=== PATIENT | male | born 1950 | race Caucasian/White ===

== ENCOUNTER 2018-02-14 12:43 | Emergency (ER) | payer MEDICARE, OTHER ==
[~2018-02-14] VITALS: Ht 177.8 cm; Wt 104.5 kg
[~2018-02-14 12:43] MED LIST: ASPIRIN 81M81 MG/TA2 PO; BYSTOLIC5 MG PO; CARAFATE S1 GM/10 ML PO; CIPRO 500MG TA500 MG PO; FLAGYL500 MG PO; FLOMAX 0.40.4 MG/CAP PO; NORCO 325 MG-51 TAB PO; PREDNISONE20 MG PO; PRILOSEC 20MG20 MG PO
[2018-02-14 12:48] VITALS: TEMP 98.3
[2018-02-14] MEDS ORDERED: PREDNISONE20 MG PO (14:14)
[2018-02-14 14:59] VITALS: BP 146/90; PULSE 66
== END 2018-02-14 15:08 | disposition home or self-care (01) ==
LOC: COL.ER 12:43
DX: T78.1XXA Other adverse food reactions, not elsewhere classified, initial encounter (principal); I10 Essential (primary) hypertension; Z79.82 Long term (current) use of aspirin
CPT/HCPCS: J1100; J1200; J7030

== ENCOUNTER 2019-02-14 08:56 | Emergency (ER) | payer MEDICARE, OTHER ==
[~2019-02-14] VITALS: Ht 177.8 cm; Wt 104.5 kg
[2019-02-14 09:01] VITALS: TEMP 97.4
[2019-02-14] MEDS ORDERED: ANDRODERM2.5 MG/24 TD (09:11)
[2019-02-14 09:31] LABS: BASO # 0.1 (0.0-0.2); BASO % 1.5 % (0.0-2.0); EOS # 0.2 (0.0-0.7); EOS % 4.2 % (0-4.0); GRAN # 2.1 (1.4-6.5); GRAN % 52.3 % (42.2-75.2); HEMATOCRIT 41.4 % (42.0-52.0); HEMOGLOBIN 13.6 g/dl (13.5-18.0); LYMPH # 1.2 (1.2-3.4); MEAN CELL VOLUME 87 fl (80.0-100.0); MEAN CORPUSCULAR HEMOGLOBIN 29 pg (27.0-31.0); MEAN CORPUSCULAR HGB CONC 33 g/dl (33.0-37.0); MEAN PLATELET VOLUME 10.8 fl (7.4-10.4); MONO # 0.5 (0.1-0.6); MONO % 11.8 % (1.7-9.3); PLATELET COUNT 112 K/mm3 (130-400); RED BLOOD COUNT 4.75 M/mm3 (4.20-5.60); REDCELL DISTRIBUTION WIDTH-CV 12.4 % (11.5-14.5)
[2019-02-14 09:34] LABS: PROTHROMBIN TIME 12.2 SECONDS (9.7-12.8)
[2019-02-14 09:45] LABS: ALANINE AMINOTRANSFERASE 58 U/L (21-72); ALBUMIN 3.7 gm/dL (3.5-5.0); ALKALINE PHOSPHATASE 72 U/L (50-136); ANION GAP 7 mmol/L (7-16); AST,SGOT 58 U/L (15-37); BILIRUBIN,TOTAL 0.6 mg/dL (0.0-1.0); BLOOD UREA NITROGEN 14 mg/dL (9-20); CALCIUM 8.7 mg/dL (8.4-10.2); CARBON DIOXIDE 26 mmol/L (22-30); CHLORIDE 108 mmol/L (98-107); CREATININE, serum 0.83 (0.66-1.25); GLUCOSE 111 mg/dL (74-106); POTASSIUM 4.2 mmol/L (3.4-5.0); SODIUM 141 mmol/L (137-145); TOTAL PROTEIN 6.6 gm/dL (6.4-8.2)
[2019-02-14 09:46] LABS: C-REACTIVE PROTEIN < 0.5 mg/dL (0.0-0.9)
[2019-02-14 10:42] VITALS: BP 163/94; PULSE 54
== END 2019-02-14 10:42 | disposition home or self-care (01) ==
LOC: COL.ER 08:56
PROVIDERS: Family Medicine
DX: R51 Headache (principal); I10 Essential (primary) hypertension; Z79.82 Long term (current) use of aspirin

== ENCOUNTER 2022-07-02 15:27 | Outpatient (RCR) | payer MEDICARE, OTHER ==
[~2022-07-02 15:27] MED LIST changes: +ANDRODERM2.5 MG/24 TD
== END 2022-07-22 | disposition home or self-care (01) ==
LOC: MKS.ESL.PT
DX: S46.812D Strain of other muscles, fascia and tendons at shoulder and upper arm level, left arm, subsequent encounter (principal); M43.6 Torticollis; X58.XXXD Exposure to other specified factors, subsequent encounter